=== PATIENT | female | born 1935 | race Caucasian/White ===

== ENCOUNTER 2016-11-26 07:50 | Day surgery (SDC) | payer OTHER ==
[~2016-11-26] VITALS: Ht 165.1 cm; Wt 63.0 kg
[~2016-11-26 07:50] MED LIST: ATORVASTATIN CA40 MG PO; CARVEDILOL25 MG PO; FUROSEMIDE40 MG PO; LEVOTHYROXINE50 MCG PO; LOSARTAN POTAS100 MG PO; NITROGLYCERIN0.4 MG SL; SPIRONOLACTONE25 MG PO; TRAZODONE HCL50 MG PO; TYLENOL REGULA325 MG PO; WARFARIN SODIU2.5 MG PO
[2016-11-26] MEDS ORDERED: PAIN PILL (09:38)
[2016-11-26] MEDS ORDERED: ANTIBIOTIC (09:38)
== END 2016-11-26 16:20 | disposition home or self-care (01) ==
LOC: CATH 07:50
PROC: B41D1ZZ Fluoroscopy of Aorta and Bilateral Lower Extremity Arteries using Low Osmolar Contrast (ICD-10-PCS; principal; 2016-11-26)
PROC: 047S3ZZ Dilation of Left Posterior Tibial Artery, Percutaneous Approach (ICD-10-PCS; principal; 2016-11-26)
PROC: B44LZZZ Ultrasonography of Femoral Artery (ICD-10-PCS; principal; 2016-11-26)
PROC: 047N3ZZ Dilation of Left Popliteal Artery, Percutaneous Approach (ICD-10-PCS; principal; 2016-11-26)
DX: I70.223 Atherosclerosis of native arteries of extremities with rest pain, bilateral legs (principal); I70.92 Chronic total occlusion of artery of the extremities; I10 Essential (primary) hypertension; E78.5 Hyperlipidemia, unspecified; Z86.73 Personal history of transient ischemic attack (TIA), and cerebral infarction without residual deficits; Z79.01 Long term (current) use of anticoagulants; E07.9 Disorder of thyroid, unspecified; M19.90 Unspecified osteoarthritis, unspecified site; Z88.8 Allergy status to other drugs, medicaments and biological substances; Z82.3 Family history of stroke; Z82.49 Family history of ischemic heart disease and other diseases of the circulatory system
CPT/HCPCS: C1725; C1760; C1769; C1887; C1894; J1200; J1644; J2250; J3010; S0020